=== PATIENT | male | born 2000 ===

== ENCOUNTER 2024-02-13 21:28 | Outpatient (REF) | payer BC, SELFPAY ==
[2024-02-13 21:42] LABS: Abs Immature Grans 0.03 10^3/uL (0.0-0.06); Absolute Basophil Count 0.06 10^3/uL (0.0-0.2); Absolute Lymphocyte Count 3.78 10^3/uL (1.2-3.4); Absolute Neutrophil Count 5.48 10^3/uL (1.2-6.7); Basophils % 0.5 %; Eosinophils % 2.7 %; HCT 44.8 % (40.0-50.0); HGB 15.1 g/dL (13.5-17.5); Immature Grans % 0.3 %; Lymphocytes % 34.2 %; MCH 29.9 pg (27.0-33.0); MCHC 33.7 % (32.0-36.0); MCV 89 fL (80-95); MPV 10.7 fL (8.0-11.0); Monocytes % 12.7 %; Neutrophils % 49.6 %; Platelet Count 310 10^3/uL (130-400); RBC 5.05 10^6/uL (4.36-5.78); RDW 12.9 % (11.8-14.1); RDW-SD 41.9 fL; WBC 11.05 10^3/uL (4.4-10.8)
[2024-02-13 22:04] LABS: Anion Gap 9.5 mmol/L (3-11); BUN 14 mg/dL (7-18); CO2 28.5 mmol/L (21.0-32.0); CREATININE 1.1 mg/dL (0.70-1.30); Calcium 9.6 mg/dL (8.5-10.1); Chloride 103 mmol/L (98-107); Estimated GFR 96.14 (mL/min/1.73m2); Glucose 77 mg/dL (74-106); Potassium 4.2 mmol/L (3.5-5.1); Sodium 141 mmol/L (136-145); TSH (W/Ref FT4) 3.24 uIU/mL (0.36-3.74)
== END 2024-02-13 21:29 | disposition home or self-care (01) ==
LOC: LBN 21:28
PROVIDERS: Visit Provider Physician Assistant Medical
DX: R55 Syncope and collapse (principal)
CPT/HCPCS: 80048; 84443; 85025

== ENCOUNTER 2024-10-21 09:59 | Outpatient (REF) | payer BC, SELFPAY ==
[2024-10-23 12:57] LABS: Appearance Normal; Container Type 50 mL Conical; Germ Cells/mL 0.08 x10(6) (<4.00); Head Shape Abnormal 19.5 %; Motile/Ejaculate 12.6 x10(6) (>=9.0); Motile/mL 3.6 x10(6) (>=6.0); Motility 72 % (>=40); Semen Volume 3.5 mL (>=1.5); Study Type Semen; Tail Defect 26.5 %; WBC/mL 0.03 x10(6) (<1.00); pH 7.5 (>=7.2)
== END 2024-10-21 10:00 | disposition home or self-care (01) ==
LOC: LBN 09:59
PROVIDERS: Visit Provider Obstetrics & Gynecology
DX: Z31.69 Encounter for other general counseling and advice on procreation (principal)
CPT/HCPCS: 89240; 89310